=== PATIENT | male | born 1995 | race Asian ===

== ENCOUNTER 2023-12-25 01:05 | Emergency (ER) | payer OTHER ==
[~2023-12-25] VITALS: Ht 152.4 cm; Wt 68.0 kg
[2023-12-25 01:05] VITALS: O2SAT 100
== END 2023-12-25 01:20 ==
LOC: SED 01:05
DX: Z02.83 Encounter for blood-alcohol and blood-drug test (principal); Z79.899 Other long term (current) drug therapy
CPT/HCPCS: 99281